=== PATIENT | female | born 1965 | race Caucasian/White ===

== ENCOUNTER 2017-05-30 17:43 | Emergency (ER) | payer OTHER ==
[2017-05-30 17:51] VITALS: BP 107/72; PULSE 106; TEMP 98.4; BMI 28.1
[2017-05-30] MEDS ORDERED: IBUPROFEN 400 MG TABLET (FP) PO ONE ×2 (18:33→18:49)
--- NOTE | 2017-05-30 18:36 | PDOC ---
History of Present Illness - General Chief Complaint: Injury Stated Complaint: FALL/INJURY Time Seen by Provider: 05/30/17 18:27 History Source: Patient - History of Present Illness Occurred: reports: other Lower Extremity Pain Location: left: ankle Method of Injury: Yes: twisted Past History - Past Medical History Allergies/Adverse Reactions: Allergies Allergy/AdvReac Type Severity Reaction Status Date / Time No Known Allergies Allergy Verified 05/30/17 17:47 Home Medications: Ambulatory Orders Aspirin [ASA -] 81 mg PO DAILY 05/30/17 Carvedilol [Coreg -] 6.25 mg PO ASDIR 05/30/17 Quetiapine Fumarate [Seroquel -] 25 mg PO HS 05/30/17 Ramipril 5 mg PO DAILY 05/30/17 Cardiac Disorders: Yes Other medical history: kaibab - Surgical History Cardiac Surgery: Yes (ppm) - Suicide/Smoking/Psychosocial Hx Smoking History: Never smoked Have you smoked in the past 12 months: No Information on smoking cessation initiated: No Hx Alcohol Use: No Drug/Substance Use Hx: No Review of Systems - Review of Systems Musculoskeletal: Yes: Joint Pain, Joint Swelling *Physical Exam - Vital Signs Last Vital Signs Temp Pulse Resp BP Pulse Ox 98.4 F 106 H 18 107/72 100 05/30/17 17:48 05/30/17 17:48 05/30/17 17:48 05/30/17 17:48 05/30/17 17:48 - Physical Exam General Appearance: Yes: Appropriately Dressed. No: Apparent Distress HEENT: positive: Normal Voice Neck: positive: Supple Respiratory/Chest: negative: Respiratory Distress Extremity: positive: Swelling (to lateral malleolus w/ ttp) Integumentary: positive: Dry, Warm Neurologic: positive: Fully Oriented, Alert, Normal Mood/Affect ED Treatment Course - RADIOLOGY Radiology Studies Ordered: Category Date Time Status ANKLE & FOOT-LEFT* [RAD] Stat Radiology 05/30/17 18:33 Ordered Medical Decision Making - Medical Decision Making 05/30/17 18:33 51-year-old female, no significant history here with left ankle pain and swelling status post injury. Patient states approximately 5 days ago, she tripped and twisted ankle. Has had pain and swelling since. Able to bear weight but painful. Has not been taking anything for pain See exam M/l sprain XR r/o sprain -pain control 05/30/17 18:49 XR neg for fracture. Dc w/ RICE and ortho f/u as needed *DC/Admit/Observation/Transfer Diagnosis at time of Disposition: Ankle sprain Qualifiers: Encounter type: initial encounter Involved ligament of ankle: unspecified ligament Laterality: left Qualified Code(s): S93.402A - Sprain of unspecified ligament of left ankle, initial encounter - Discharge Dispostion Disposition: HOME Condition at time of disposition: Good - Referrals Referrals: STAFF,NOT ON [Primary Care Provider] - Abhay Dowd MD [Staff Physician] - - Patient Instructions Printed Discharge Instructions: Ankle Sprain Additional Instructions: Take motrin for pain, rest, ice and elevate extremity If symptoms persist after 2 weeks, please follow-up with Dr. Dowd of orthopedics
== END 2017-05-30 18:57 | disposition home or self-care (01) ==
LOC: JERFT 17:43
DX: S93.402A Sprain of unspecified ligament of left ankle, initial encounter (principal); W01.0XXA Fall on same level from slipping, tripping and stumbling without subsequent striking against object, initial encounter; Y93.89 Activity, other specified; Y92.89 Other specified places as the place of occurrence of the external cause; Y99.8 Other external cause status; Z95.0 Presence of cardiac pacemaker
CPT/HCPCS: 73610-TC-LT; 73630-TC-LT; 99281-25